=== PATIENT | female | born 1995 | race Caucasian/White ===

== ENCOUNTER 2018-10-31 03:40 | Emergency (ER) | payer SELFPAY ==
[2018-10-31 04:19] VITALS: RESP 20
--- NOTE | 2018-10-31 05:16 | C.PDOC ---
History Of Present Illness 23 year old female presents to the ER for evaluation of nausea and some vomiting after eating a brownie that had marijuana in it at midnight. Patient is unsure how much marijuana was in it and states she got it from "this nora". Denies ETOH use or other complaints at this time. Time Seen by Provider: 10/31/18 04:06 Chief Complaint (Nursing): Substance Abuse History Per: Patient History/Exam Limitations: no limitations Onset/Duration Of Symptoms: Hrs Current Symptoms Are (Timing): Still Present Suicide/Self Injury Attempted (Context): None Modifying Factor(s): Marijuana Involuntary Hold By: None Recent travel outside of the [place]: No Past Medical History Reviewed: Historical Data, Nursing Documentation, Vital Signs Vital Signs: Last Vital Signs Temp 99.7 F H 10/31/18 04:11 Pulse 110 H 10/31/18 04:11 Resp 20 10/31/18 04:11 BP 118/75 10/31/18 04:11 Pulse Ox 100 10/31/18 04:11 Family History: States: Unknown Family Hx - Social History Hx Alcohol Use: Yes Hx Substance Use: Yes (marijuana first time today 10/31/2018) Review Of Systems Except As Marked, All Systems Reviewed And Found Negative. Constitutional: Negative for: Fever, Chills Cardiovascular: Negative for: Chest Pain, Palpitations Respiratory: Negative for: Cough, Shortness of Breath Gastrointestinal: Negative for: Nausea, Vomiting Neurological: Negative for: Weakness, Numbness Physical Exam - Physical Exam Appears: Non-toxic Skin: Normal Color, Warm, Dry, No Rash Head: Atraumatic, Normacephalic Eye(s): bilateral: Normal Inspection, PERRL, EOMI Oral Mucosa: Moist Neck: Normal, Normal ROM, No Midline Cervical Tenderness, No Paracervical Tenderness, Supple Chest: Symmetrical, No Tenderness Cardiovascular: Rhythm Regular, No Friction Rub, No Murmur Respiratory: Normal Breath Sounds, No Rales, No Rhonchi, No Wheezing Gastrointestinal/Abdominal: Soft, No Tenderness Back: No CVA Tenderness Extremity: Normal ROM (x4), No Swelling Neurological/Psych: Oriented x3, Normal Speech Gait: Steady ED Course And Treatment O2 Sat by Pulse Oximetry: 100 (Room air) Pulse Ox Interpretation: Normal Medical Decision Making Medical Decision Making: Patient is resting comfortably in the ER in no acute distress, ambulatory with steady gait, clinically sober, vitals are stable, will discharge home with instructions to follow up with PMD. Stop using drugs Disposition - Disposition Referrals: [facility] [Outside] Disposition: HOME/ ROUTINE Disposition Time: 05:34 Condition: STABLE Additional Instructions: Follow up with the medical doctor within 1-2 days. Return if worsened. 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 - Scribe Statement The provider has reviewed the documentation as recorded by the Scribe Jayjay Cates All medical record entries made by the Mikaelaibpirere were at my direction and personally dictated by me. I have reviewed the chart and agree that the record accurately reflects my personal performance of the history, physical exam, medical decision making, and the department course for this patient. I have also personally directed, reviewed, and agree with the discharge instructions and disposition.
[2018-10-31 05:55] VITALS: BP 128/80; PULSE 81; TEMP 97
[2018-10-31 06:36] VITALS: O2SAT 100
== END 2018-10-31 05:55 | disposition home or self-care (01) ==
LOC: C.ER 03:40
DX: F12.90 Cannabis use, unspecified, uncomplicated (principal)